=== PATIENT | male | born 1945 | race Caucasian/White ===

== ENCOUNTER 2016-08-16 09:39 | Inpatient (IN) | payer BC, MEDICARE ==
[2016-08-14 11:21] LABS: BASOPHILS 0.8 %; BASOPHILS ABSOLUTE 0.05 10/3/uL (0.0-0.16); EOSINOPHILS 5.4 %; EOSINOPHILS ABSOLUTE 0.33 10/3/uL (0.0-0.53); HEMATOCRIT 40.3 % (40.0-51.0); HEMOGLOBIN 14.1 g/dL (13.6-17.8); IMMATURE GRANULOCYTES 0.5 %; IMMATURE GRANULOCYTES ABSOLUTE 0.03 10/3/uL (0.0-0.11); LYMPHOCYTES 28.6 %; LYMPHOCYTES ABSOLUTE 1.76 10/3/uL (0.67-4.30); MEAN CORPUSCULAR HEMOGLOB 31.1 pg (26.0-34.0); MEAN PLATELET VOLUME 9.6 fL (9.2-13.0); MONOCYTES 7.8 %; MONOCYTES ABSOLUTE 0.48 10/3/uL (0.21-1.20); NEUTROPHILS 56.9 %; NEUTROPHILS ABSOLUTE 3.51 10/3/uL (2.02-8.40); PLATELET COUNT 214 10/3/uL (150-400); RED CELL COUNT 4.53 10/6/uL (4.7-6.1); WHITE BLOOD CELLS 6.2 10/3/uL (4.5-10.5)
[2016-08-14 11:22] LABS: MANUAL DIFF NO %
[2016-08-14 11:25] LABS: INTERNATIONAL NORMAL RATI 1.1 UNITS (-); PROTIME (NOT ORD) 13.9 SEC (12.0-14.5)
[2016-08-14 11:27] LABS: ASCORBIC ACID (UR NOT ORDER) 40 (NEG); BILIRUBIN, URINE NEGATIVE (NEG); KETONE, URINE NEGATIVE (NEG); LEUKOCYTE ESTERASE(NOT OR NEG (NEG); WBC (NOT ORDERED) (RFLEX) 2 (0-5)
[2016-08-14 11:41] LABS: A/G RATIO 1.1 (0.7-1.9); ALKALINE PHOSPHATASE 90 U/L (45-117); CALCIUM, SERUM 9.1 MG/DL (8.5-10.4); CHLORIDE, SERUM 106 MMOL/L (96-112); CO2 (CARBON DIOXIDE) 26 MMOL/L (24-34); CREATININE 0.99 MG/DL (0.70-1.30); GFR AFRICAN AMERICAN 90 ML/MIN (>=60); GFR NON AFRICAN AMERICAN 77 ML/MIN (>=60); GLOBULIN 3.8 G/DL (2.5-4.1); GLUCOSE, SERUM 133 MG/DL (60-99); POTASSIUM, SERUM 3.7 MMOL/L (3.5-5.3); SGOT(AST) 58 U/L (5-40); SGPT(ALT) 58 U/L (5-65); SODIUM, SERUM 142 MMOL/L (135-148); TOTAL BILIRUBIN 0.6 MG/DL (0-1.2); TOTAL PROTEIN 7.8 G/DL (6.0-8.5)
[2016-08-14 11:42] LABS: BUN (BLOOD UREA NITROGEN) 18 MG/DL (6-23)
--- NOTE | ~2016-08-16 | OP ---
Record Of Operation [facility] [address] [place]. [address] NAME: ARMIDA SIMON : 49 STATUS : ADM IN PAT#: [id number] AGE: 71 ADM/REG DATE : 08/16/16 MR#: [id number] REPORT SERV DATE: 08/16/16 DICTATED BY: BRYAN RINCON JR. DATE: 08/16/16 REPORT STATUS : Draft TRANSCRIBED BY: MODL DATE: 08/16/16 DATE OF PROCEDURE: 08/16/2016 PREOPERATIVE DIAGNOSES: Squamous cell carcinoma of the left upper lobe, chronic obstructive pulmonary disease, coronary artery disease, hypertension, [id number] diabetes mellitus. POSTOPERATIVE DIAGNOSES: Squamous cell carcinoma of the left upper lobe, chronic obstructive pulmonary disease, coronary artery disease, hypertension, shj-krqohkk-[id number] diabetes mellitus, with moderate pericardial effusion. NAME OF OPERATION: Bronchoscopy, left thoracoscopy with exploration, pericardial window, left upper lobectomy with complete mediastinal node dissection (julio césar stations 5, 6, 7, 9, 11 L), intercostal nerve blocks, lysis of adhesions. SURGEON: Bryan Rincon M.D. RESIDENT SURGEON: Bobby Babin MD ISOTOPE TECHNOLOGIST: Juwan Schroeder. ANESTHESIA: General endotracheal. FINDINGS: The patient was noted to have no contraindications to proceeding with surgery on bronchoscopy. There was some mucus secretions evacuated. There were no endobronchial lesions. Upon exploration of the left chest, there was a moderate amount of adhesions which required taking down. This added about 45 minutes on to the operative time. There was also a moderate pericardial effusion which looked benign. The pericardium was not inflamed. A pericardial window was performed with the fluid being sent for cytology. The mass was clearly within the left upper lobe. It was not adherent to the chest wall. We were able to remove the left upper lobe with some difficulty, secondary to his adhesions, and his partially calcified lymph nodes. Gross inspection confirmed the tumor within the lobe removed. Final pathology is pending. Margins were grossly negative. DETAILS OF OPERATION: After adequate general anesthesia, the patient was intubated. A bronchoscopy was then performed, noting no endobronchial lesions or contraindication section. Left-sided double-lumen endotracheal tube was then placed. The patient was then positioned in the right lateral decubitus position with the left chest was prepped and draped in routine sterile fashion. A small incision made overlying the lower intercostal space. A separate anterior trocar incision was also made. Through these two incision sites, the above findings were noted. The adhesions were taken down with electrocautery. An Enseal was also utilized. This took an extra 45 minutes. He did have a moderate pericardial effusion with serous fluid. The pericardial window was performed draining the effusion, sending it for cytology. Decision was made to go on with a lobectomy. The inferior pulmonary ligament was taken down. The inferior pulmonary vein was identified. The superior pulmonary vein was identified. It was transected with a vascular stapler. The Record Of Operation [facility] [address] [place]. [address] NAME: ARMIDA SIMON : 49 STATUS : ADM IN [facility]#: [id number] AGE: 71 ADM/REG DATE : 08/16/16 MR#: [id number] REPORT SERV DATE: 08/16/16 DICTATED BY: BRYAN RINCON JR. DATE: 08/16/16 REPORT STATUS : Draft TRANSCRIBED BY: VALE DATE: 08/16/16 arterial branch was divided with a vascular stapler. The bronchus was divided with ANAHI stapler. The fissure was divided with multiple firings of ANAHI stapler with tissue reinforcements. The specimen was removed through the anterior trocar site in the specimen bag. An intercostal nerve block was performed. Nodes from the AP window, subcarinal, inferior pulmonary ligament, and hilar regions were removed. The chest was thoroughly irrigated with sterile water. A 20-Luxembourger chest tube was placed. The lung was reinflated. The trocar sites were closed with running Vicryl sutures. The skin was closed with running monofilament suture. A Dermabond dressing was applied and the procedure was terminated at this point. The patient tolerated the procedure well and taken back to recovery room in stable condition. DONTAE/VALE Bryan Rincon Jr., M.D. / [id number] CC: Gerald Bills Jr., M.D.
[~2016-08-16 09:39] MED LIST: ADVIL; ASAB PO; FISH-EPA1000 MG PO; GLUCOPHAGE1000 MG PO; HYDROCHLOROT25 MG PO; KLOR-CON M2020 MEQ PO; MULTIPLE VIT; MULTIVITAMI1 PO; NORV5 PO; PRAVAC PO; TRILIPIX135 MG PO; Z100 PO; ZESTRIL20 MG PO
[2016-08-17 05:14] LABS: BASOPHILS 0.1 %; BASOPHILS ABSOLUTE 0.01 10/3/uL (0.0-0.16); EOSINOPHILS 0 %; HEMATOCRIT 39.1 % (40.0-51.0); HEMOGLOBIN 13.2 g/dL (13.6-17.8); IMMATURE GRANULOCYTES 0.4 %; IMMATURE GRANULOCYTES ABSOLUTE 0.05 10/3/uL (0.0-0.11); LYMPHOCYTES 6.6 %; LYMPHOCYTES ABSOLUTE 0.91 10/3/uL (0.67-4.30); MEAN CORPUS HGB CONC 33.8 g/dL (32.0-36.0); MEAN CORPUSCULAR HEMOGLOB 31.1 pg (26.0-34.0); MEAN PLATELET VOLUME 10.1 fL (9.2-13.0); MONOCYTES 8.9 %; MONOCYTES ABSOLUTE 1.23 10/3/uL (0.21-1.20); NEUTROPHILS ABSOLUTE 11.61 10/3/uL (2.02-8.40); PLATELET COUNT 211 10/3/uL (150-400); RBC DISTRIBUTION WIDTH 14.2 % (12.0-16.0); RED CELL COUNT 4.25 10/6/uL (4.7-6.1)
[2016-08-17 05:18] LABS: MANUAL DIFF NO %; WHITE BLOOD CELLS 13.8 10/3/uL (4.5-10.5)
[2016-08-17 05:25] LABS: CALCIUM, SERUM 8.5 MG/DL (8.5-10.4); CHLORIDE, SERUM 103 MMOL/L (96-112); CO2 (CARBON DIOXIDE) 23 MMOL/L (24-34); CREATININE 1.18 MG/DL (0.70-1.30); GFR AFRICAN AMERICAN 73 ML/MIN (>=60); GFR NON AFRICAN AMERICAN 63 ML/MIN (>=60); GLUCOSE, SERUM 141 MG/DL (60-99); POTASSIUM, SERUM 3.6 MMOL/L (3.5-5.3); SODIUM, SERUM 140 MMOL/L (135-148)
[2016-08-17 05:26] LABS: BUN (BLOOD UREA NITROGEN) 22 MG/DL (6-23)
[2016-08-17] MEDS ORDERED: PCET PO (11:20)
[2016-09-04] MEDS ORDERED: NORV10 PO (21:34)
[2016-09-04] MEDS ORDERED: LISINOPRIL40 MG PO (21:34)
[2016-09-04] MEDS ORDERED: Z100 PO (21:35)
[2016-09-04] MEDS ORDERED: HYDROCHLOROT25 MG PO (21:35)
[2016-09-04] MEDS ORDERED: PRAVAC PO (21:35)
[2016-09-04] MEDS ORDERED: GLUCOPHAGE1000 MG PO (21:35)
[2016-09-04] MEDS ORDERED: ADVIL PO (21:36)
[2016-09-04] MEDS ORDERED: TRILIPIX135 MG PO (21:36)
[2016-09-04] MEDS ORDERED: VITC500 PO (21:36)
[2016-09-04] MEDS ORDERED: HALF81 PO (21:36)
[2016-09-04] MEDS ORDERED: AFRIN15 NAS (21:37)
[2016-09-05] MEDS ORDERED: LOP25 PO (16:37)
== END 2016-08-17 12:38 | disposition home or self-care (01) | DRG 164 ==
LOC: SDC/OF 09:39 → PACU 16:06 → 5NO 17:46
PROVIDERS: Thoracic Surgery (Cardiothoracic Vascular Surgery)
PROC: 07B74ZZ Excision of Thorax Lymphatic, Percutaneous Endoscopic Approach (ICD-10-PCS; 2016-08-16)
PROC: 0BJ08ZZ Inspection of Tracheobronchial Tree, Via Natural or Artificial Opening Endoscopic (ICD-10-PCS; 2016-08-16)
PROC: 0W9D4ZZ Drainage of Pericardial Cavity, Percutaneous Endoscopic Approach (ICD-10-PCS; 2016-08-16)
PROC: 3E0T3BZ Introduction of Anesthetic Agent into Peripheral Nerves and Plexi, Percutaneous Approach (ICD-10-PCS; 2016-08-16)
PROC: 0BTG4ZZ Resection of Left Upper Lung Lobe, Percutaneous Endoscopic Approach (ICD-10-PCS; principal; 2016-08-16 11:45)
DX: C34.12 Malignant neoplasm of upper lobe, left bronchus or lung (principal); I31.3 Pericardial effusion (noninflammatory); J44.9 Chronic obstructive pulmonary disease, unspecified; I25.10 Atherosclerotic heart disease of native coronary artery without angina pectoris; I10 Essential (primary) hypertension; E11.9 Type 2 diabetes mellitus without complications
CPT/HCPCS: 36415; 71020; 80048; 80053; 81001; 82962; 85025; 85610; 86850; 86900; 86901; 87641; 88112; 88305; 88307; 88309; 88311; 88313; 93005; 94640; A9270-GY; J0690; J2250; J2370; J2405; J2710; J2795; J3010; P9045